=== PATIENT | male | born 1950 | race American Indian/Alaskan Native ===

== ENCOUNTER 2020-03-11 20:51 | Emergency (ER) | payer MEDICARE, OTHER ==
[~2020-03-11 20:51] MED LIST: DOPamine/D5W 800 MG/250 ML DRIP IV ONE; EPINEPHrine 1 MG/10 ML SYRINGE ONE; SODIUM BICARB 8.4% 50 MEQ/50 ML SYRINGE IV ONE
--- NOTE | 2020-03-11 21:11 | Emergency Department Report ---
HPI - General PUI?: Yes Time Seen by Provider: 03/11/20 21:06 - HPI HPI: Room 37 The patient is a 69-year-old male present with a chief complaint of cardiac arrest. Per EMS the patient is Covid positive currently in a fdc who was found by staff to be short of breath. EMS was called and arrived on scene at 20:14. Per EMS, they were told the patient arrested chest as EMS arrived. EMS arrived to find the patient in PEA. ACLS protocols were initiated and the patient was intubated using a Silvio airway. Prior to arrival EMS administered 1 round of calcium, 1 round of sodium bicarb and 4 rounds of epinephrine. Upon arrival to the ED the patient was still in PEA and ACLS protocols were continued. A Silvio airway was removed and the patient was intubated by myself using a glide scope. ACLS protocols were continued but there was no return of spontaneous circulation ED Past Medical Hx - Past Medical History Hx Hypertension: Yes (X 20 YRS) Hx CVA: Yes Hx Arthritis: Yes Hx Tuberculosis: Yes (POSITIVE SKIN TEST,HAD TX,NEG CXR) Hx Dementia: Yes (DAUGHTER IS POA) - Surgical History Past Surgical History?: No - Family History Family history: no significant - Social History Smoking Status: Former Smoker - Medications Home Medications: Home Medications Medication Instructions Recorded Confirmed Last Taken Type Pregabalin [Lyrica] 75 mg PO QHS 02/14/13 02/14/13 02/14/13 History Sildenafil Citrate [Viagra] 100 mg PO PRN PRN 02/14/13 02/14/13 02/11/13 History Testosterone Cypionate (Nf) 200 mg IJ UNK 02/14/13 02/14/13 02/12/13 History [Depo-Testosterone] Valsartan [Diovan] 160 mg PO DAILY 02/14/13 02/14/13 02/15/13 04:00 History ED Review of Systems ROS: Stated complaint: CARDIAC ARREST Other details as noted in HPI Comment: Unobtainable due to pts medical conditions Physical Exam - Physical Exam Physical Exam: GENERAL: The patient is well-developed thin cachectic male receiving chest compressions and being bagged via Silvio airway HEENT: Normocephalic. Atraumatic. NECK: Supple. Trachea midline CHEST/LUNGS: No spontaneous respirations. Breath sounds equal bilaterally with bagging after intubation by myself HEART/CARDIOVASCULAR: No heart sounds. PEA on monitor ABDOMEN: Abdomen is soft, nontender. There is no abdominal distention. SKIN: There is no rash. There is no edema. There is no diaphoresis. NEURO: GCS 3 T MUSCULOSKELETAL: There is no evidence of acute injury. - Intubation Time Out Performed: No Sedative: none Laryngoscope: fiberoptic video scope Size: 3 ET Tube Size: 8 Tube Secured Depth (cm): 24 Tube Secured Location: lips Tube Placement Confirmation: visualized tube passing t, equal breath sounds bilat, no breath sounds over epi Patient Tolerated Procedure: well, no complications Intubation Complications: none ED Medical Decision Making - Differential Diagnosis Cardiac arrest, respiratory arrest Critical care attestation.: If time is entered above; I have spent that time in minutes in the direct care of this critically ill patient, excluding procedure time. ED Disposition Clinical Impression: Cardiac arrest Disposition: DC-20 Is pt being admited?: No Does the pt Need Aspirin: No Condition: Poor Time of Disposition: 21:07 (Patient )
== END 2020-03-12 02:00 ==
LOC: ED 20:51
DX: I46.9 Cardiac arrest, cause unspecified (principal); I10 Essential (primary) hypertension; M19.91 Primary osteoarthritis, unspecified site; F03.90 Unspecified dementia, unspecified severity, without behavioral disturbance, psychotic disturbance, mood disturbance, and anxiety; Z86.73 Personal history of transient ischemic attack (TIA), and cerebral infarction without residual deficits; Z86.11 Personal history of tuberculosis; Z79.899 Other long term (current) drug therapy
CPT/HCPCS: 31500; 99285; J0171; J1265